=== PATIENT | female | born 1960 | race Caucasian/White ===

== ENCOUNTER 2019-01-16 08:18 | Day surgery (SDC) | payer OTHER ==
[~2019-01-16 08:18] MED LIST: SEVOFLURANE 15 MIN
[2019-01-16] MEDS ORDERED: MIDAZOLAM 1 MG/ML 2 ML INJ (10:52)
[2019-01-16] MEDS ORDERED: DEXAMETHASONE 4 MG/ML 1 ML INJ (11:24)
[2019-01-16] MEDS ORDERED: POVIDONE IODINE 10% 28.4 GM OINT (11:24)
[2019-01-16] MEDS: POLYMYXIN/BACITRACIN 1L IRRIG IRR ×2 (11:37→12:22)
[2019-01-16] MEDS: BUPIVACAINE 0.5% (SDV) 30 ML INJ (11:37)
[2019-01-16] MEDS ORDERED: ROPIVACAINE 0.5 % 30 ML VIAL (12:13)
[2019-01-16] MEDS ORDERED: CEFAZOLIN 1 GM INJ (12:30)
[2019-01-16] MEDS ORDERED: GLYCOPYRROLATE 0.4 MG INJ (12:30)
[2019-01-16] MEDS ORDERED: LIDOCAINE 2% (SDV) 5 ML INJ (12:30)
[2019-01-16] MEDS ORDERED: PROPOFOL 20 ML (12:30)
[2019-01-16] MEDS ORDERED: NEOSTIGMINE 3 MG/3 ML SYRINGE (12:30)
[2019-01-16] MEDS ORDERED: ROCURONIUM 50 MG INJ (12:30)
[2019-01-16] MEDS ORDERED: ETOMIDATE 20 MG INJ (12:30)
[2019-01-16] MEDS ORDERED: ONDANSETRON 4 MG INJ (12:31)
[2019-01-16] MEDS ORDERED: DIPHENHYDRAMINE 50 MG INJ IV (13:00)
[2019-01-16] MEDS ORDERED: FENTAnyl 50 MCG/ML VIAL IV (13:00)
[2019-01-16] MEDS ORDERED: ONDANSETRON 4 MG INJ IV (13:00)
[2019-01-16] MEDS ORDERED: LABETALOL HCL 20MG INJ IV (13:00)
[2019-01-16] MEDS ORDERED: METOCLOPRAMIDE 10 MG INJ IV (13:00)
[2019-01-16] MEDS ORDERED: MEPERIDINE 25 MG INJ IV (13:00)
== END 2019-01-16 16:45 | disposition home or self-care (01) ==
LOC: SDS 08:18
DX: M21.6X1 Other acquired deformities of right foot (principal); E11.9 Type 2 diabetes mellitus without complications; I10 Essential (primary) hypertension; E78.5 Hyperlipidemia, unspecified
CPT/HCPCS: 28118; 71045; 73630; 82962; 88304; 88311